=== PATIENT | female | born 1965 | race Caucasian/White ===

== ENCOUNTER 2019-03-12 16:28 | Inpatient (IN) | payer BC ==
--- NOTE | 2019-03-12 16:44 | EDM.PDOC ---
ED HPI GENERAL MEDICAL PROBLEM - General Chief Complaint: Abdominal Pain Stated Complaint: PT HAS STOMACH PAIN Time Seen by Provider: 03/12/19 16:29 Source of Information: Reports: Patient History Limitations: Reports: No Limitations - History of Present Illness INITIAL COMMENTS - FREE TEXT/NARRATIVE: History of present illness: []Patient started having epigastric pain yesterday associated with vomiting and diarrhea and subjective fevers. Symptoms have been getting worse despite several [id number] medications such as Tums and Gas-X. She had a similar episode 3 weeks ago that was self-limited and she states the diarrhea was much worse.Patient has had 2 C-sections, partial hysterectomy, appendectomy and oophorectomy in the past. Review of systems: As per history of present illness and below otherwise all systems reviewed and negative. Past medical history: As per history of present illness and as reviewed below otherwise noncontributory. Surgical history: As per history of present illness and as reviewed below otherwise noncontributory. Social history: No reported history of drug or alcohol abuse. Family history: As per history of present illness and as reviewed below otherwise noncontributory. Physical exam: General: Well developed, well nourished in NAD HEENT: Atraumatic, normocephalic, pupils reactive, negative for conjunctival pallor or scleral icterus, mucous membranes moist, throat clear, neck supple, nontender, trachea midline. Lungs: Clear to auscultation, breath sounds equal bilaterally, chest nontender. Heart: S1S2, regular, negative for clicks, rubs, or JVD. Abdomen: NABS, Soft, nondistended,diffuse tenderness she has voluntary guarding in the right lower quadrant,no rebound. Negative for masses or hepatosplenomegaly. Negative for costovertebral tenderness. Pelvis: Stable nontender. Genitourinary: Deferred. Rectal: Deferred. Extremities: Atraumatic, negative for cords or calf pain. Neurovascular unremarkable. Neuro: Awake, alert, oriented. Cranial nerves II through XII unremarkable. Cerebellum unremarkable. Motor and sensory unremarkable throughout. Exam nonfocal. Skin:warm and dry Diagnostics: CBC, chemistry, lipase, UA-40+ ketones, CT abdomen and pelvis-bowel obstruction with a transition point, there is no pneumatosis or perforation. There are areas of thickened wall. Therapeutics: Morphine, Zofran, IV hydration with 2 L normal saline ED Course: pain Improved, Dr. Abbott and Dr. Pelaez consulted after CT results showed bowel obstruction into the hospital for bowel rest and pain control surgery if needed. Impression: Bowel obstruction Prescriptions: Zofran Plan: Take meds as directed, follow up with your primary care physician, return to ER if symptoms worsen or change. Definitive disposition and diagnosis as appropriate pending reevaluation and review of above. Abdomen Pain Score (Numeric/FACES): 8 - Related Data Allergies Allergy/AdvReac Type Severity Reaction Status Date / Time aspirin Allergy Nose Bleeds Verified 03/12/19 19:25 Penicillins Allergy Cannot Verified 03/12/19 16:48 Remember Home Meds: Home Meds Biest/Progesterone Transdermal Cr 1 applic TOP DAILY 08/30/16 [History] Progesterone,Micronized [Progesterone] 100 mg PO DAILY 08/30/16 [History] Levothyroxine mcg PO DAILY 03/12/19 [History] Ondansetron [Zofran ODT] 4 mg PO Q6H PRN #20 tab.dis 03/12/19 [Rx] Past Medical History Gastrointestinal History: Reports: None Genitourinary History: Reports: None [employer] History: Reports: Musculoskeletal History: Reports: Other (See Below) Other Musculoskeletal History: neck, shoulder and back pain, rt groin and ankle pain, myalgia pain - Past Surgical History Female Surgical History: Reports: Section, Hysterectomy, Oophorectomy ED ROS GENERAL - Review of Systems Review Of Systems: See Below ED EXAM, GI/ABD - Physical Exam Exam: See Below Course - Vital Signs Last Recorded V/S: Last Vital Signs Temp 97.1 F 03/12/19 16:45 Pulse 79 03/12/19 16:45 Resp 16 03/12/19 16:45 BP 130/83 03/12/19 16:45 Pulse Ox 96 03/12/19 16:45 - Orders/Labs/Meds Orders: Active Orders 24 hr Category Date Time Status Patient Status [ADT] Stat ADT 03/12/19 19:36 Active LACTATE WITH REFLEX [BG] Stat Lab 03/12/19 19:33 Ordered Sodium Chloride 0.9% [Saline Flush] Med 03/12/19 16:48 Active 10 ml FLUSH ASDIRECTED PRN Sodium Chloride 0.9% [Saline Flush] Med 03/12/19 16:48 Active 2.5 ml FLUSH ASDIRECTED PRN Saline Lock Insert [OM.PC] Stat Oth 03/12/19 16:48 Ordered Medication Orders Sodium Chloride (Saline Flush) 10 ml FLUSH ASDIRECTED PRN PRN Reason: Keep Vein Open Sodium Chloride (Saline Flush) 2.5 ml FLUSH ASDIRECTED PRN PRN Reason: Keep Vein Open Labs: Laboratory Tests 03/12/19 03/12/19 03/12/19 Range/Units 17:00 17:00 18:05 WBC 8.22 (4.0-11.0) K/uL RBC 4.79 (4.30-5.90) M/uL Hgb 14.8 (12.0-16.0) g/dL Hct 43.6 (36.0-46.0) % MCV 91.0 (80.0-98.0) fL MCH 30.9 (27.0-32.0) pg MCHC 33.9 (31.0-37.0) g/dL RDW Std Deviation 43.0 (28.0-62.0) fl RDW Coeff of Raghav 13 (11.0-15.0) % Plt Count 230 (150-400) K/uL MPV 10.60 (7.40-12.00) fL Neut % (Auto) 71.4 (48.0-80.0) % Lymph % (Auto) 20.7 (16.0-40.0) % [place] % (Auto) 7.2 (0.0-15.0) % Eos % (Auto) 0.5 (0.0-7.0) % Baso % (Auto) 0.2 (0.0-1.5) % Neut # (Auto) 5.9 H (1.4-5.7) K/uL Lymph # (Auto) 1.7 (0.6-2.4) K/uL [place] # (Auto) 0.6 (0.0-0.8) K/uL Eos # (Auto) 0.0 (0.0-0.7) K/uL Baso # (Auto) 0.0 (0.0-0.1) K/uL Nucleated RBC % 0.0 /100WBC Nucleated RBCs # 0 K/uL Sodium 142 (136-145) mmol/L Potassium 4.1 (3.5-5.1) mmol/L Chloride 104 (98-107) mmol/L Carbon Dioxide 27.3 (21.0-32.0) mmol/L BUN 12 (7.0-18.0) mg/dL Creatinine 1.0 (0.6-1.0) mg/dL Est Cr Clr Drug Dosing 58.54 mL/min Estimated GFR (MDRD) 58.0 ml/min Glucose 113 H (74-106) mg/dL Calcium 9.3 (8.5-10.1) mg/dL Total Bilirubin 0.6 (0.2-1.0) mg/dL AST 22 (15-37) IU/L ALT 19 (14-63) IU/L Alkaline Phosphatase 58 (46-116) U/L Total Protein 7.7 (6.4-8.2) g/dL Albumin 4.4 (3.4-5.0) g/dL Globulin 3.3 (2.6-4.0) g/dL Albumin/Globulin Ratio 1.3 (0.9-1.6) Lipase 72 L (73-393) U/L Urine Color YELLOW Urine Appearance SLT CLOUDY Urine pH 5.5 (5.0-8.0) Ur Specific [place] 1.025 (1.001-1.035) Urine Protein NEGATIVE (NEGATIVE) mg/dL Urine Glucose (UA) NEGATIVE (NEGATIVE) mg/dL Urine Ketones 40 H (NEGATIVE) mg/dL Urine Occult Blood MODERATE H (NEGATIVE) Urine Nitrite NEGATIVE (NEGATIVE) Urine Bilirubin NEGATIVE (NEGATIVE) Urine Urobilinogen 0.2 (<2.0) EU/dL Ur Leukocyte Esterase NEGATIVE (NEGATIVE) Urine RBC 0-1 (0-2/HPF) Urine WBC 0-1 (0-5/HPF) Ur Epithelial Cells RARE (NONE-FEW) Urine Bacteria RARE (NEGATIVE) Urine Mucus LIGHT (NONE-MOD) Meds: Medications Generic Name Dose Route Start Last Admin Trade Name Freq PRN Reason Stop Dose Admin Sodium Chloride 10 ml 03/12/19 16:48 Saline Flush FLUSH ASDIRECTED PRN Keep Vein Open Sodium Chloride 2.5 ml 03/12/19 16:48 Saline Flush FLUSH ASDIRECTED PRN Keep Vein Open Discontinued Medications Generic Name Dose Route Start Last Admin Trade Name Freq PRN Reason Stop Dose Admin Famotidine 20 mg 03/12/19 17:33 03/12/19 17:39 Pepcid IVPUSH 03/12/19 17:34 20 mg ONETIME ONE Administration Sodium Chloride 1,000 mls @ 999 mls/hr 03/12/19 16:48 03/12/19 17:03 Normal Saline IV 03/12/19 17:48 999 mls/hr .Bolus ONE Administration Sodium Chloride 1,000 mls @ 999 mls/hr 03/12/19 18:09 03/12/19 18:34 Normal Saline IV 03/12/19 19:09 999 mls/hr .Bolus ONE Administration Iopamidol 83 ml 03/12/19 18:52 03/12/19 18:53 Isovue Multipack-370 (76%) IVPUSH 03/12/19 18:53 83 ml ONETIME ONE Administration Morphine Sulfate 2 mg 03/12/19 16:48 03/12/19 17:03 Morphine IVPUSH 03/12/19 16:49 2 mg ONETIME ONE Administration Morphine Sulfate 2 mg 03/12/19 18:07 03/12/19 18:09 Morphine IVPUSH 03/12/19 18:08 2 mg ONETIME ONE Administration Morphine Sulfate Confirm 03/12/19 18:06 03/12/19 18:19 Morphine Administered 03/12/19 18:07 Not Given Dose 2 mg .ROUTE .STK-MED ONE Ondansetron HCl 4 mg 03/12/19 16:48 03/12/19 17:03 Zofran IVPUSH 03/12/19 16:49 4 mg ONETIME ONE Administration Departure - Departure Time of Disposition: 19:40 Disposition: Admitted As Inpatient 66 Condition: Good Clinical Impression: Bowel obstruction Qualifiers: Intestinal obstruction type: unspecified Intestinal obstruction extent: complete Qualified Code(s): K56.601 - Complete intestinal obstruction, unspecified as to cause - Discharge Information *PRESCRIPTION DRUG MONITORING PROGRAM REVIEWED*: No *COPY OF PRESCRIPTION DRUG MONITORING REPORT IN PATIENT ERIC: No Prescriptions: Ondansetron [Zofran ODT] 4 mg PO Q6H PRN #20 tab.dis PRN Reason: Nausea Referrals: PCP,None [Primary Care Provider] - Forms: ED Department Discharge - My Orders Last 24 Hours: My Active Orders 03/12/19 16:48 Sodium Chloride 0.9% [Saline Flush] 10 ml FLUSH ASDIRECTED PRN Sodium Chloride 0.9% [Saline Flush] 2.5 ml FLUSH ASDIRECTED PRN Saline Lock Insert [OM.PC] Stat 03/12/19 19:33 LACTATE WITH REFLEX [BG] Stat 03/12/19 19:36 Patient Status [ADT] Stat - Assessment/Plan Last 24 Hours: My Active Orders 03/12/19 16:48 Sodium Chloride 0.9% [Saline Flush] 10 ml FLUSH ASDIRECTED PRN Sodium Chloride 0.9% [Saline Flush] 2.5 ml FLUSH ASDIRECTED PRN Saline Lock Insert [OM.PC] Stat 03/12/19 19:33 LACTATE WITH REFLEX [BG] Stat 03/12/19 19:36 Patient Status [ADT] Stat
[2019-03-12] MEDS ORDERED: Sodium Chloride 0.9% 1,000 ML IV ONE ×2 (16:48→18:09)
[2019-03-12] MEDS ORDERED: Ondansetron 4 MG/2 ML SDV IVPUSH ONE (16:48)
[2019-03-12] MEDS ORDERED: Sodium Chloride 0.9% 10 ML Syringe FLUSH PRN (16:48)
[2019-03-12] MEDS ORDERED: Morphine 2 MG/ML Syringe IVPUSH ONE ×2 (16:48→18:07)
[2019-03-12] MEDS ORDERED: Sodium Chloride 0.9% 2.5 ML Syringe FLUSH PRN (16:48)
[2019-03-12] MEDS ORDERED: Famotidine 20 MG/2 ML SDV IVPUSH ONE (17:33)
[2019-03-12] MEDS ORDERED: Morphine 2 MG/ML Syringe ONE (18:06)
[2019-03-12] MEDS ORDERED: Iopamidol 755 MG/ML 200 ML Multipack Bottle IVPUSH ONE (18:52)
--- NOTE | 2019-03-12 19:35 | CT ---
INDICATION: Upper abdominal pain. TECHNIQUE: CT abdomen and pelvis acquired with IV contrast. COMPARISON: None FINDINGS: Lower chest: Unremarkable. Liver: Unremarkable. Spleen: Unremarkable. Pancreas: Unremarkable. Gallbladder and bile ducts: Unremarkable. Kidneys: Tiny low-density lesion in the lower pole of the left kidney is too small to characterize. No other renal abnormality. Adrenal glands: Unremarkable. GI tract: Mild colonic diverticulosis. The appendix is reportedly surgically absent. There are several borderline to mildly dilated fluid-filled loops of small bowel. There is a transition point in the right mid abdomen (image 75). A few loops of small bowel in the pelvis demonstrate wall thickening. No pneumatosis. No portal venous gas. Vascular structures: No sign of aneurysm. Lymph nodes: Unremarkable. Miscellaneous: There is mild ascites in the abdomen and pelvis. No free air. Pelvic Organs: Urinary bladder is normal. Hysterectomy. Bones: No acute abnormality. Nonspecific 1.7 lucent lesion in the left iliac bone (coronal image 58). No other bone lesion. IMPRESSION: 1. Findings are consistent with small bowel obstruction. There appears to be a transition point in the right mid abdomen. A couple of small bowel loops in the pelvis demonstrate wall thickening without evidence of pneumatosis or portal venous gas. Proximal jejunal loops and distal ileal loops are nondistended. Findings are not diagnostic of a closed loop obstruction although this is a consideration. Recommend surgical consultation. 2. Small volume ascites in the abdomen and pelvis is reactive to #1. Findings discussed with Dr. Sam at 7:30 p.m. on 03/12/2019. Dictated by William Her MD @ 03/12/2019 7:34:03 PM Please note that all CT scans at this facility use dose modulation, iterative reconstruction, and/or weight-based dosing when appropriate to reduce radiation dose to as low as reasonably achievable. Dictated by: William Her MD @ 03/12/2019 19:34:13 (Electronically Signed)
--- NOTE | 2019-03-12 20:21 | PCM.CONS ---
H&P History of Present Illness - General Date of Service: 03/12/19 Admit Problem/Dx: Admission Diagnosis/Problem Admission Diagnosis/Problem Small bowel obstruction Source of Information: Patient History Limitations: Reports: No Limitations - History of Present Illness Initial Comments - Free Text/Narative: Patient is a 53 year old male who presents with nausea and abdominal pain. She had similar symptoms earlier this month with worse diarrhea but they resolved on their own. Over the last 2 days the symptoms returned and did not resolve. She tried OTC medications with no relief. She tried to get into clinic but couldnt be seen. She had a loose BM and then vomited and decided to come to the ER. She has had four abdominal surgeries. She has never had a colonoscopy. No family history of colon cancer, inflammatory bowel syndromes. Abdomen Pain Score (Numeric/FACES): 8 - Related Data Allergies/Adverse Reactions: Allergies Allergy/AdvReac Type Severity Reaction Status Date / Time aspirin Allergy Nose Bleeds Verified 03/12/19 19:25 Penicillins Allergy Cannot Verified 03/12/19 16:48 Remember Home Medications: Home Meds Biest/Progesterone Transdermal Cr 1 applic TOP DAILY 08/30/16 [History] Progesterone,Micronized [Progesterone] 100 mg PO DAILY 08/30/16 [History] Levothyroxine mcg PO DAILY 03/12/19 [History] Ondansetron [Zofran ODT] 4 mg PO Q6H PRN #20 tab.dis 03/12/19 [Rx] Past Medical History Gastrointestinal History: Reports: None Genitourinary History: Reports: None [employer]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: Musculoskeletal History: Reports: Other (See Below) Other Musculoskeletal History: neck, shoulder and back pain, rt groin and ankle pain, myalgia pain - Infectious Disease History Infectious Disease History: Reports: Chicken Pox, Mumps - Past Surgical History GI Surgical History: Reports: Appendectomy Female Surgical History: Reports: Section, Hysterectomy, Oophorectomy Social & Family History - Family History Family Medical History: Noncontributory - Tobacco Use Smoking Status *Q: Never Smoker - Caffeine Use Caffeine Use: Reports: Coffee - Recreational Drug Use Recreational Drug Use: No H&P Review of Systems - Review of Systems: Review Of Systems: ROS reveals no pertinent complaints other than HPI. Exam - Exam Exam: See Below - Vital Signs Vital Signs: Last Vital Signs Temp 36.2 C 03/12/19 16:45 Pulse 79 03/12/19 16:45 Resp 16 03/12/19 16:45 BP 130/83 03/12/19 16:45 Pulse Ox 96 03/12/19 16:45 Weight: 69.6 kg - Exam General: Alert, Oriented, Cooperative HEENT: Conjunctiva Clear, Mucosa Moist & [place], Posterior Pharynx Clear Neck: Supple Lungs: Clear to Auscultation, Normal Respiratory Effort Cardiovascular: Regular Rate, Regular Rhythm GI/Abdominal Exam: Soft, No Distention, Tender (Mild tenderness in RLQ. ). No: Guarding, Rigid, Rebound Back Exam: Normal Inspection, Full Range of Motion Extremities: Normal Inspection, Normal Range of Motion, Non-Tender - Patient Data Lab Results Last 24 hrs: Laboratory Results - last 24 hr 03/12/19 03/12/19 03/12/19 Range/Units 17:00 17:00 18:05 WBC 8.22 (4.0-11.0) K/uL RBC 4.79 (4.30-5.90) M/uL Hgb 14.8 (12.0-16.0) g/dL Hct 43.6 (36.0-46.0) % MCV 91.0 (80.0-98.0) fL MCH 30.9 (27.0-32.0) pg MCHC 33.9 (31.0-37.0) g/dL RDW Std Deviation 43.0 (28.0-62.0) fl RDW Coeff of Raghav 13 (11.0-15.0) % Plt Count 230 (150-400) K/uL MPV 10.60 (7.40-12.00) fL Neut % (Auto) 71.4 (48.0-80.0) % Lymph % (Auto) 20.7 (16.0-40.0) % [place] % (Auto) 7.2 (0.0-15.0) % Eos % (Auto) 0.5 (0.0-7.0) % Baso % (Auto) 0.2 (0.0-1.5) % Neut # (Auto) 5.9 H (1.4-5.7) K/uL Lymph # (Auto) 1.7 (0.6-2.4) K/uL [place] # (Auto) 0.6 (0.0-0.8) K/uL Eos # (Auto) 0.0 (0.0-0.7) K/uL Baso # (Auto) 0.0 (0.0-0.1) K/uL Nucleated RBC % 0.0 /100WBC Nucleated RBCs # 0 K/uL Lactate (0.20-2.00) mmol/L Sodium 142 (136-145) mmol/L Potassium 4.1 (3.5-5.1) mmol/L Chloride 104 (98-107) mmol/L Carbon Dioxide 27.3 (21.0-32.0) mmol/L BUN 12 (7.0-18.0) mg/dL Creatinine 1.0 (0.6-1.0) mg/dL Est Cr Clr Drug Dosing 58.54 mL/min Estimated GFR (MDRD) 58.0 ml/min Glucose 113 H (74-106) mg/dL Calcium 9.3 (8.5-10.1) mg/dL Total Bilirubin 0.6 (0.2-1.0) mg/dL AST 22 (15-37) IU/L ALT 19 (14-63) IU/L Alkaline Phosphatase 58 (46-116) U/L Total Protein 7.7 (6.4-8.2) g/dL Albumin 4.4 (3.4-5.0) g/dL Globulin 3.3 (2.6-4.0) g/dL Albumin/Globulin Ratio 1.3 (0.9-1.6) Lipase 72 L (73-393) U/L Urine Color YELLOW Urine Appearance SLT CLOUDY Urine pH 5.5 (5.0-8.0) Ur Specific [place] 1.025 (1.001-1.035) Urine Protein NEGATIVE (NEGATIVE) mg/dL Urine Glucose (UA) NEGATIVE (NEGATIVE) mg/dL Urine Ketones 40 H (NEGATIVE) mg/dL Urine Occult Blood MODERATE H (NEGATIVE) Urine Nitrite NEGATIVE (NEGATIVE) Urine Bilirubin NEGATIVE (NEGATIVE) Urine Urobilinogen 0.2 (<2.0) EU/dL Ur Leukocyte Esterase NEGATIVE (NEGATIVE) Urine RBC 0-1 (0-2/HPF) Urine WBC 0-1 (0-5/HPF) Ur Epithelial Cells RARE (NONE-FEW) Urine Bacteria RARE (NEGATIVE) Urine Mucus LIGHT (NONE-MOD) 03/12/19 Range/Units 19:48 WBC (4.0-11.0) K/uL RBC (4.30-5.90) M/uL Hgb (12.0-16.0) g/dL Hct (36.0-46.0) % MCV (80.0-98.0) fL MCH (27.0-32.0) pg MCHC (31.0-37.0) g/dL RDW Std Deviation (28.0-62.0) fl RDW Coeff of Raghav (11.0-15.0) % Plt Count (150-400) K/uL MPV (7.40-12.00) fL Neut % (Auto) (48.0-80.0) % Lymph % (Auto) (16.0-40.0) % [place] % (Auto) (0.0-15.0) % Eos % (Auto) (0.0-7.0) % Baso % (Auto) (0.0-1.5) % Neut # (Auto) (1.4-5.7) K/uL Lymph # (Auto) (0.6-2.4) K/uL [place] # (Auto) (0.0-0.8) K/uL Eos # (Auto) (0.0-0.7) K/uL Baso # (Auto) (0.0-0.1) K/uL Nucleated RBC % /100WBC Nucleated RBCs # K/uL Lactate 1.1 (0.20-2.00) mmol/L Sodium (136-145) mmol/L Potassium (3.5-5.1) mmol/L Chloride (98-107) mmol/L Carbon Dioxide (21.0-32.0) mmol/L BUN (7.0-18.0) mg/dL Creatinine (0.6-1.0) mg/dL Est Cr Clr Drug Dosing mL/min Estimated GFR (MDRD) ml/min Glucose (74-106) mg/dL Calcium (8.5-10.1) mg/dL Total Bilirubin (0.2-1.0) mg/dL AST (15-37) IU/L ALT (14-63) IU/L Alkaline Phosphatase (46-116) U/L Total Protein (6.4-8.2) g/dL Albumin (3.4-5.0) g/dL Globulin (2.6-4.0) g/dL Albumin/Globulin Ratio (0.9-1.6) Lipase (73-393) U/L Urine Color Urine Appearance Urine pH (5.0-8.0) Ur Specific [place] (1.001-1.035) Urine Protein (NEGATIVE) mg/dL Urine Glucose (UA) (NEGATIVE) mg/dL Urine Ketones (NEGATIVE) mg/dL Urine Occult Blood (NEGATIVE) Urine Nitrite (NEGATIVE) Urine Bilirubin (NEGATIVE) Urine Urobilinogen (<2.0) EU/dL Ur Leukocyte Esterase (NEGATIVE) Urine RBC (0-2/HPF) Urine WBC (0-5/HPF) Ur Epithelial Cells (NONE-FEW) Urine Bacteria (NEGATIVE) Urine Mucus (NONE-MOD) Result Diagrams: 03/12/19 17:00 03/12/19 17:00 Consult PN Assessment/Plan Procedures: Procedures ANTINUCLEAR ANTIBODIES (04/27/16) ASSAY OF CK (CPK) (04/27/16) ASSAY THYROID STIM HORMONE (04/27/16) COMP SCREEN MAMMOGRAM ADD-ON (08/25/15) COMPLETE CBC W/AUTO DIFF WBC (04/27/16) COMPREHEN METABOLIC PANEL (04/27/16) MRI LUMBAR SPINE W/O DYE (03/08/16) RBC SED RATE AUTOMATED (04/27/16) REDUCTION OF LARGE BREAST (09/01/16) RHEUMATOID FACTOR TEST QUAL (04/27/16) ROUTINE VENIPUNCTURE (04/27/16) URINALYSIS AUTO W/SCOPE (04/06/14) URINE BACTERIA CULTURE (04/06/14) X-RAY EXAM HIP UNI 2-3 VIEWS (03/02/16) X-RAY EXAM L-S SPINE 2/3 VWS (03/02/16) X-RAY EXAM OF ANKLE (03/02/16) (1) Bowel obstruction SNOMED Code(s): 97446315 Code(s): K56.609 - UNSP INTESTNL OBST, UNSP TO PARTIAL VERSUS COMPLETE OBST Current Visit: Yes Qualifiers: Intestinal obstruction type: unspecified Intestinal obstruction extent: complete Qualified Code(s): K56.601 - Complete intestinal obstruction, unspecified as to cause Problem List Initiated/Reviewed/Updated: Yes Plan: Her vitals were stable on arrival. UA showed increased ketones and some blood. Her WBC was normal. CT abdomen/pelvis showed dilated loops of proximal small bowel and there are a few loops of small bowel that have some thickening. There is no pneumatosis and no portal venous gas. The transition point is in the area of the thickened bowel. She feels much better after fluids. Admit to medicine. Would continue IVF and NPO other than meds. She doesnt need to have an NG placed at this time but if she starts vomiting multiple times she will need one placed. Recommend repeat labs in am and stool cultures if she has another BM. Abdomen doesnt feel acute. Will continue to follow. Call with concerns or questions.
[2019-03-12] MEDS ORDERED: Ondansetron 4 MG/2 ML SDV IVPUSH PRN (20:56)
[2019-03-12] MEDS ORDERED: Morphine 2 MG/ML Syringe IVPUSH PRN (20:57)
[2019-03-12] MEDS: Sodium Chloride 0.9% 1,000 ML IV SCH (21:50)
--- NOTE | 2019-03-12 23:49 | PCM.HP ---
H&P History of Present Illness - General Date of Service: 03/12/19 Admit Problem/Dx: Admission Diagnosis/Problem Admission Diagnosis/Problem Small bowel obstruction - History of Present Illness Initial Comments - Free Text/Narative: 53 yo male who presented with two day history of abdominal pain and diarrhea. Her last bowel movement was 3:00 today. She then developed nausea and vomiting. CT scan of the abdomen was suggestive of small bowel obstruction. She has a history of , hysterectomy, oophorectomy, and appendectomy. Abdomen Pain Score (Numeric/FACES): 8 - Related Data Allergies/Adverse Reactions: Allergies Allergy/AdvReac Type Severity Reaction Status Date / Time aspirin Allergy Nose Bleeds Verified 03/13/19 02:00 Penicillins Allergy Cannot Verified 03/13/19 02:00 Remember Home Medications: Home Meds Biest/Progesterone Transdermal Cr 1 applic TOP DAILY 08/30/16 [History] Progesterone,Micronized [Progesterone] 100 mg PO BEDTIME 08/30/16 [History] Levothyroxine 50 mcg PO DAILY 03/12/19 [History] Ondansetron [Zofran ODT] 4 mg PO Q6H PRN #20 tab.dis 03/12/19 [Rx] Tolterodine [Detrol] 4 mg PO DAILY 03/12/19 [History] Past Medical History Gastrointestinal History: Reports: None Genitourinary History: Reports: None [employer] History: Reports: Musculoskeletal History: Reports: Other (See Below) Other Musculoskeletal History: neck, shoulder and back pain, rt groin and ankle pain, myalgia pain - Infectious Disease History Infectious Disease History: Reports: Chicken Pox, Mumps - Past Surgical History GI Surgical History: Reports: Appendectomy Female Surgical History: Reports: Section, Hysterectomy, Oophorectomy Social & Family History - Family History Family Medical History: Noncontributory - Tobacco Use Smoking Status *Q: Never Smoker - Caffeine Use Caffeine Use: Reports: Coffee - Recreational Drug Use Recreational Drug Use: No H&P Review of Systems - Review of Systems: Review Of Systems: ROS reveals no pertinent complaints other than HPI. Exam - Exam Exam: See Below - Vital Signs Vital Signs: Last Vital Signs Temp 36.2 C 03/12/19 16:45 Pulse 70 03/12/19 20:20 Resp 16 03/12/19 20:20 BP 127/66 03/12/19 20:20 Pulse Ox 98 03/12/19 20:20 Weight: 69.6 kg - Exam General: Alert, Oriented HEENT: Mucosa Moist & [place] Lungs: Clear to Auscultation, Normal Respiratory Effort Cardiovascular: Regular Rate, Regular Rhythm GI/Abdominal Exam: Soft, Tender (in all four quadrants). No: Distended, Guarding, Rigid, Rebound Extremities: Non-Tender, No Pedal Edema Skin: Warm, Dry, Intact - Patient Data Lab Results Last 24 hrs: Laboratory Results - last 24 hr 03/12/19 03/12/19 03/12/19 Range/Units 17:00 17:00 18:05 WBC 8.22 (4.0-11.0) K/uL RBC 4.79 (4.30-5.90) M/uL Hgb 14.8 (12.0-16.0) g/dL Hct 43.6 (36.0-46.0) % MCV 91.0 (80.0-98.0) fL MCH 30.9 (27.0-32.0) pg MCHC 33.9 (31.0-37.0) g/dL RDW Std Deviation 43.0 (28.0-62.0) fl RDW Coeff of Raghav 13 (11.0-15.0) % Plt Count 230 (150-400) K/uL MPV 10.60 (7.40-12.00) fL Neut % (Auto) 71.4 (48.0-80.0) % Lymph % (Auto) 20.7 (16.0-40.0) % [place] % (Auto) 7.2 (0.0-15.0) % Eos % (Auto) 0.5 (0.0-7.0) % Baso % (Auto) 0.2 (0.0-1.5) % Neut # (Auto) 5.9 H (1.4-5.7) K/uL Lymph # (Auto) 1.7 (0.6-2.4) K/uL [place] # (Auto) 0.6 (0.0-0.8) K/uL Eos # (Auto) 0.0 (0.0-0.7) K/uL Baso # (Auto) 0.0 (0.0-0.1) K/uL Nucleated RBC % 0.0 /100WBC Nucleated RBCs # 0 K/uL Lactate (0.20-2.00) mmol/L Sodium 142 (136-145) mmol/L Potassium 4.1 (3.5-5.1) mmol/L Chloride 104 (98-107) mmol/L Carbon Dioxide 27.3 (21.0-32.0) mmol/L BUN 12 (7.0-18.0) mg/dL Creatinine 1.0 (0.6-1.0) mg/dL Est Cr Clr Drug Dosing 58.54 mL/min Estimated GFR (MDRD) 58.0 ml/min Glucose 113 H (74-106) mg/dL Calcium 9.3 (8.5-10.1) mg/dL Total Bilirubin 0.6 (0.2-1.0) mg/dL AST 22 (15-37) IU/L ALT 19 (14-63) IU/L Alkaline Phosphatase 58 (46-116) U/L Total Protein 7.7 (6.4-8.2) g/dL Albumin 4.4 (3.4-5.0) g/dL Globulin 3.3 (2.6-4.0) g/dL Albumin/Globulin Ratio 1.3 (0.9-1.6) Lipase 72 L (73-393) U/L Urine Color YELLOW Urine Appearance SLT CLOUDY Urine pH 5.5 (5.0-8.0) Ur Specific [place] 1.025 (1.001-1.035) Urine Protein NEGATIVE (NEGATIVE) mg/dL Urine Glucose (UA) NEGATIVE (NEGATIVE) mg/dL Urine Ketones 40 H (NEGATIVE) mg/dL Urine Occult Blood MODERATE H (NEGATIVE) Urine Nitrite NEGATIVE (NEGATIVE) Urine Bilirubin NEGATIVE (NEGATIVE) Urine Urobilinogen 0.2 (<2.0) EU/dL Ur Leukocyte Esterase NEGATIVE (NEGATIVE) Urine RBC 0-1 (0-2/HPF) Urine WBC 0-1 (0-5/HPF) Ur Epithelial Cells RARE (NONE-FEW) Urine Bacteria RARE (NEGATIVE) Urine Mucus LIGHT (NONE-MOD) 03/12/19 Range/Units 19:48 WBC (4.0-11.0) K/uL RBC (4.30-5.90) M/uL Hgb (12.0-16.0) g/dL Hct (36.0-46.0) % MCV (80.0-98.0) fL MCH (27.0-32.0) pg MCHC (31.0-37.0) g/dL RDW Std Deviation (28.0-62.0) fl RDW Coeff of Raghav (11.0-15.0) % Plt Count (150-400) K/uL MPV (7.40-12.00) fL Neut % (Auto) (48.0-80.0) % Lymph % (Auto) (16.0-40.0) % [place] % (Auto) (0.0-15.0) % Eos % (Auto) (0.0-7.0) % Baso % (Auto) (0.0-1.5) % Neut # (Auto) (1.4-5.7) K/uL Lymph # (Auto) (0.6-2.4) K/uL [place] # (Auto) (0.0-0.8) K/uL Eos # (Auto) (0.0-0.7) K/uL Baso # (Auto) (0.0-0.1) K/uL Nucleated RBC % /100WBC Nucleated RBCs # K/uL Lactate 1.1 (0.20-2.00) mmol/L Sodium (136-145) mmol/L Potassium (3.5-5.1) mmol/L Chloride (98-107) mmol/L Carbon Dioxide (21.0-32.0) mmol/L BUN (7.0-18.0) mg/dL Creatinine (0.6-1.0) mg/dL Est Cr Clr Drug Dosing mL/min Estimated GFR (MDRD) ml/min Glucose (74-106) mg/dL Calcium (8.5-10.1) mg/dL Total Bilirubin (0.2-1.0) mg/dL AST (15-37) IU/L ALT (14-63) IU/L Alkaline Phosphatase (46-116) U/L Total Protein (6.4-8.2) g/dL Albumin (3.4-5.0) g/dL Globulin (2.6-4.0) g/dL Albumin/Globulin Ratio (0.9-1.6) Lipase (73-393) U/L Urine Color Urine Appearance Urine pH (5.0-8.0) Ur Specific [place] (1.001-1.035) Urine Protein (NEGATIVE) mg/dL Urine Glucose (UA) (NEGATIVE) mg/dL Urine Ketones (NEGATIVE) mg/dL Urine Occult Blood (NEGATIVE) Urine Nitrite (NEGATIVE) Urine Bilirubin (NEGATIVE) Urine Urobilinogen (<2.0) EU/dL Ur Leukocyte Esterase (NEGATIVE) Urine RBC (0-2/HPF) Urine WBC (0-5/HPF) Ur Epithelial Cells (NONE-FEW) Urine Bacteria (NEGATIVE) Urine Mucus (NONE-MOD) Result Diagrams: 03/13/19 04:55 03/13/19 04:55 Problem List Initiated/Reviewed/Updated: Yes Orders Last 24hrs: Active Orders 24 hr Category Date Time Status Patient Status [ADT] Stat ADT 03/12/19 19:36 Active NPO [Nothing Per Oral Diet] [DIET] Diet 03/13/19 Breakfast Active BMP [BASIC METABOLIC PANEL,BMP] [CHEM] Routine Lab 03/13/19 05:11 Ordered CBC WITH AUTO DIFF [HEME] Routine Lab 03/13/19 05:11 Ordered Morphine Med 03/12/19 20:57 Active 2 mg IVPUSH Q2H PRN Ondansetron [Zofran] Med 03/12/19 20:56 Active 4 mg IVPUSH Q3H PRN Sodium Chloride 0.9% [Normal Saline] 1,000 ml Med 03/12/19 21:00 Active IV ASDIRECTED Sodium Chloride 0.9% [Saline Flush] Med 03/12/19 16:48 Active 10 ml FLUSH ASDIRECTED PRN Sodium Chloride 0.9% [Saline Flush] Med 03/12/19 16:48 Active 2.5 ml FLUSH ASDIRECTED PRN Saline Lock Insert [OM.PC] Stat Oth 03/12/19 16:48 Ordered Medication Orders Sodium Chloride (Normal Saline) 1,000 mls @ 125 mls/hr IV ASDIRECTED [facility] Last Admin: 03/12/19 21:50 Dose: 125 mls/hr Morphine Sulfate (Morphine) 2 mg IVPUSH Q2H PRN PRN Reason: Pain Ondansetron HCl (Zofran) 4 mg IVPUSH Q3H PRN PRN Reason: Nausea Last Admin: 03/12/19 21:48 Dose: 4 mg Sodium Chloride (Saline Flush) 10 ml FLUSH ASDIRECTED PRN PRN Reason: Keep Vein Open Sodium Chloride (Saline Flush) 2.5 ml FLUSH ASDIRECTED PRN PRN Reason: Keep Vein Open Assessment/Plan Comment:: 53 yo female admitted for small bowel obstruction. Dr. Dennis has been consulted. We will treat with bowel rest, IV fluids and pain medications as needed.
[2019-03-13 05:26] LABS: CHLORIDE,CL 111 mmol/L (98-107); SODIUM,NA 144 mmol/L (136-145)
[2019-03-13] MEDS: Sodium Chloride 0.9% 1,000 ML IV SCH ×3 (06:01→21:21)
--- NOTE | 2019-03-13 07:42 | PCM.CONSN ---
- General Info Date of Service: 03/13/19 Subjective Update: Patient is feeling much better this morning. She still has some lower abdominal tenderness but it is far less than before. She has not passed gas or had a BM. She did not vomit and is not nauseated. Vitals stable overnight. - Review of Systems General: Reports: No Symptoms Gastrointestinal: Reports: No Symptoms Genitourinary: Reports: No Symptoms - Patient Data Vitals - Most Recent: Last Vital Signs Temp 36.2 C 03/13/19 04:02 Pulse 66 03/13/19 04:02 Resp 17 03/13/19 04:02 BP 108/54 L 03/13/19 04:02 Pulse Ox 97 03/13/19 04:02 Weight - Most Recent: 69.6 kg I&O - Last 24 Hours: Intake & Output 03/12/19 03/13/19 03/13/19 22:59 06:59 14:59 Intake Total 0 Output Total 410 Balance -410 Lab Results Last 24 Hours: Laboratory Results - last 24 hr 03/12/19 03/12/19 03/12/19 Range/Units 17:00 17:00 18:05 WBC 8.22 (4.0-11.0) K/uL RBC 4.79 (4.30-5.90) M/uL Hgb 14.8 (12.0-16.0) g/dL Hct 43.6 (36.0-46.0) % MCV 91.0 (80.0-98.0) fL MCH 30.9 (27.0-32.0) pg MCHC 33.9 (31.0-37.0) g/dL RDW Std Deviation 43.0 (28.0-62.0) fl RDW Coeff of Raghav 13 (11.0-15.0) % Plt Count 230 (150-400) K/uL MPV 10.60 (7.40-12.00) fL Neut % (Auto) 71.4 (48.0-80.0) % Lymph % (Auto) 20.7 (16.0-40.0) % [place] % (Auto) 7.2 (0.0-15.0) % Eos % (Auto) 0.5 (0.0-7.0) % Baso % (Auto) 0.2 (0.0-1.5) % Neut # (Auto) 5.9 H (1.4-5.7) K/uL Lymph # (Auto) 1.7 (0.6-2.4) K/uL [place] # (Auto) 0.6 (0.0-0.8) K/uL Eos # (Auto) 0.0 (0.0-0.7) K/uL Baso # (Auto) 0.0 (0.0-0.1) K/uL Nucleated RBC % 0.0 /100WBC Nucleated RBCs # 0 K/uL Lactate (0.20-2.00) mmol/L Sodium 142 (136-145) mmol/L Potassium 4.1 (3.5-5.1) mmol/L Chloride 104 (98-107) mmol/L Carbon Dioxide 27.3 (21.0-32.0) mmol/L BUN 12 (7.0-18.0) mg/dL Creatinine 1.0 (0.6-1.0) mg/dL Est Cr Clr Drug Dosing 58.54 mL/min Estimated GFR (MDRD) 58.0 ml/min Glucose 113 H (74-106) mg/dL Calcium 9.3 (8.5-10.1) mg/dL Total Bilirubin 0.6 (0.2-1.0) mg/dL AST 22 (15-37) IU/L ALT 19 (14-63) IU/L Alkaline Phosphatase 58 (46-116) U/L Total Protein 7.7 (6.4-8.2) g/dL Albumin 4.4 (3.4-5.0) g/dL Globulin 3.3 (2.6-4.0) g/dL Albumin/Globulin Ratio 1.3 (0.9-1.6) Lipase 72 L (73-393) U/L Urine Color YELLOW Urine Appearance SLT CLOUDY Urine pH 5.5 (5.0-8.0) Ur Specific [place] 1.025 (1.001-1.035) Urine Protein NEGATIVE (NEGATIVE) mg/dL Urine Glucose (UA) NEGATIVE (NEGATIVE) mg/dL Urine Ketones 40 H (NEGATIVE) mg/dL Urine Occult Blood MODERATE H (NEGATIVE) Urine Nitrite NEGATIVE (NEGATIVE) Urine Bilirubin NEGATIVE (NEGATIVE) Urine Urobilinogen 0.2 (<2.0) EU/dL Ur Leukocyte Esterase NEGATIVE (NEGATIVE) Urine RBC 0-1 (0-2/HPF) Urine WBC 0-1 (0-5/HPF) Ur Epithelial Cells RARE (NONE-FEW) Urine Bacteria RARE (NEGATIVE) Urine Mucus LIGHT (NONE-MOD) 03/12/19 03/13/19 03/13/19 Range/Units 19:48 04:55 04:55 WBC 4.87 (4.0-11.0) K/uL RBC 3.67 L (4.30-5.90) M/uL Hgb 11.1 L (12.0-16.0) g/dL Hct 33.8 L (36.0-46.0) % MCV 92.1 (80.0-98.0) fL MCH 30.2 (27.0-32.0) pg MCHC 32.8 (31.0-37.0) g/dL RDW Std Deviation 43.7 (28.0-62.0) fl RDW Coeff of Raghav 13 (11.0-15.0) % Plt Count 178 (150-400) K/uL MPV 10.20 (7.40-12.00) fL Neut % (Auto) 55.9 (48.0-80.0) % Lymph % (Auto) 32.6 (16.0-40.0) % [place] % (Auto) 10.1 (0.0-15.0) % Eos % (Auto) 1.0 (0.0-7.0) % Baso % (Auto) 0.4 (0.0-1.5) % Neut # (Auto) 2.7 (1.4-5.7) K/uL Lymph # (Auto) 1.6 (0.6-2.4) K/uL [place] # (Auto) 0.5 (0.0-0.8) K/uL Eos # (Auto) 0.1 (0.0-0.7) K/uL Baso # (Auto) 0.0 (0.0-0.1) K/uL Nucleated RBC % 0.0 /100WBC Nucleated RBCs # 0 K/uL Lactate 1.1 (0.20-2.00) mmol/L Sodium 144 (136-145) mmol/L Potassium 4.0 (3.5-5.1) mmol/L Chloride 111 H (98-107) mmol/L Carbon Dioxide 25.5 (21.0-32.0) mmol/L BUN 9 (7.0-18.0) mg/dL Creatinine 0.7 (0.6-1.0) mg/dL Est Cr Clr Drug Dosing 83.63 mL/min Estimated GFR (MDRD) > 60.0 ml/min Glucose 94 (74-106) mg/dL Calcium 7.8 L (8.5-10.1) mg/dL Total Bilirubin (0.2-1.0) mg/dL AST (15-37) IU/L ALT (14-63) IU/L Alkaline Phosphatase (46-116) U/L Total Protein (6.4-8.2) g/dL Albumin (3.4-5.0) g/dL Globulin (2.6-4.0) g/dL Albumin/Globulin Ratio (0.9-1.6) Lipase (73-393) U/L Urine Color Urine Appearance Urine pH (5.0-8.0) Ur Specific [place] (1.001-1.035) Urine Protein (NEGATIVE) mg/dL Urine Glucose (UA) (NEGATIVE) mg/dL Urine Ketones (NEGATIVE) mg/dL Urine Occult Blood (NEGATIVE) Urine Nitrite (NEGATIVE) Urine Bilirubin (NEGATIVE) Urine Urobilinogen (<2.0) EU/dL Ur Leukocyte Esterase (NEGATIVE) Urine RBC (0-2/HPF) Urine WBC (0-5/HPF) Ur Epithelial Cells (NONE-FEW) Urine Bacteria (NEGATIVE) Urine Mucus (NONE-MOD) Med Orders - Current: Current Medications Sodium Chloride (Normal Saline) 1,000 mls @ 125 mls/hr IV ASDIRECTED [facility] Last Admin: 03/13/19 06:01 Dose: 125 mls/hr Morphine Sulfate (Morphine) 2 mg IVPUSH Q2H PRN PRN Reason: Pain Ondansetron HCl (Zofran) 4 mg IVPUSH Q3H PRN PRN Reason: Nausea Last Admin: 03/12/19 21:48 Dose: 4 mg Sodium Chloride (Saline Flush) 10 ml FLUSH ASDIRECTED PRN PRN Reason: Keep Vein Open Sodium Chloride (Saline Flush) 2.5 ml FLUSH ASDIRECTED PRN PRN Reason: Keep Vein Open Discontinued Medications Famotidine (Pepcid) 20 mg IVPUSH ONETIME ONE Stop: 03/12/19 17:34 Last Admin: 03/12/19 17:39 Dose: 20 mg Sodium Chloride (Normal Saline) 1,000 mls @ 999 mls/hr IV .Bolus ONE Stop: 03/12/19 17:48 Last Admin: 03/12/19 17:03 Dose: 999 mls/hr Sodium Chloride (Normal Saline) 1,000 mls @ 999 mls/hr IV .Bolus ONE Stop: 03/12/19 19:09 Last Admin: 03/12/19 18:34 Dose: 999 mls/hr Iopamidol (Isovue Multipack-370 (76%)) 83 ml IVPUSH ONETIME ONE Stop: 03/12/19 18:53 Last Admin: 03/12/19 18:53 Dose: 83 ml Morphine Sulfate (Morphine) 2 mg IVPUSH ONETIME ONE Stop: 03/12/19 16:49 Last Admin: 03/12/19 17:03 Dose: 2 mg Morphine Sulfate (Morphine) 2 mg IVPUSH ONETIME ONE Stop: 03/12/19 18:08 Last Admin: 03/12/19 18:09 Dose: 2 mg Morphine Sulfate (Morphine) Confirm Administered Dose 2 mg .ROUTE .STK-MED ONE Stop: 03/12/19 18:07 Last Admin: 03/12/19 18:19 Dose: Not Given Ondansetron HCl (Zofran) 4 mg IVPUSH ONETIME ONE Stop: 03/12/19 16:49 Last Admin: 03/12/19 17:03 Dose: 4 mg - Exam General: Alert, Oriented HEENT: Pupils Equal, Pupils Reactive Lungs: Normal Respiratory Effort Cardiovascular: Regular Rate GI/Abdominal Exam: Soft, Non-Tender, No Distention, No Mass Consult PN Assessment/Plan Procedures: Procedures ANTINUCLEAR ANTIBODIES (04/27/16) ASSAY OF CK (CPK) (04/27/16) ASSAY THYROID STIM HORMONE (04/27/16) COMP SCREEN MAMMOGRAM ADD-ON (08/25/15) COMPLETE CBC W/AUTO DIFF WBC (04/27/16) COMPREHEN METABOLIC PANEL (04/27/16) MRI LUMBAR SPINE W/O DYE (03/08/16) RBC SED RATE AUTOMATED (04/27/16) REDUCTION OF LARGE BREAST (09/01/16) RHEUMATOID FACTOR TEST QUAL (04/27/16) ROUTINE VENIPUNCTURE (04/27/16) URINALYSIS AUTO W/SCOPE (04/06/14) URINE BACTERIA CULTURE (04/06/14) X-RAY EXAM HIP UNI 2-3 VIEWS (03/02/16) X-RAY EXAM L-S SPINE 2/3 VWS (03/02/16) X-RAY EXAM OF ANKLE (03/02/16) (1) Bowel obstruction SNOMED Code(s): 05308827 Code(s): K56.609 - UNSP INTESTNL OBST, UNSP TO PARTIAL VERSUS COMPLETE OBST Current Visit: Yes Qualifiers: Intestinal obstruction type: unspecified Intestinal obstruction extent: complete Qualified Code(s): K56.601 - Complete intestinal obstruction, unspecified as to cause Problem List Initiated/Reviewed/Updated: Yes Plan: Patient feels less tender and bloated this morning. Can start with ice chips and see how she tolerates that this morning. Her labs show a decreased hgb which is likely from dilution. If she tolerates ice chips with no increased bloating or pain could try clears later today. Would stick to that until bowel function (flatus or BM) occurs. Call with questions.
--- NOTE | 2019-03-13 10:19 | PCM.PN ---
- General Info Date of Service: 03/13/19 - Review of Systems Systems Review Comment:: abdominal pain and nausea resolved, has not had bowel movement or flatus - Patient Data Vitals - Most Recent: Last Vital Signs Temp 36.7 C 03/13/19 08:00 Pulse 69 03/13/19 08:00 Resp 18 03/13/19 08:00 BP 126/73 03/13/19 08:00 Pulse Ox 94 L 03/13/19 08:00 Weight - Most Recent: 69.6 kg I&O - Last 24 Hours: Intake & Output 03/12/19 03/13/19 03/13/19 22:59 06:59 14:59 Intake Total 0 Output Total 410 Balance -410 Lab Results Last 24 Hours: Laboratory Results - last 24 hr 03/12/19 03/12/19 03/12/19 Range/Units 17:00 17:00 18:05 WBC 8.22 (4.0-11.0) K/uL RBC 4.79 (4.30-5.90) M/uL Hgb 14.8 (12.0-16.0) g/dL Hct 43.6 (36.0-46.0) % MCV 91.0 (80.0-98.0) fL MCH 30.9 (27.0-32.0) pg MCHC 33.9 (31.0-37.0) g/dL RDW Std Deviation 43.0 (28.0-62.0) fl RDW Coeff of Raghav 13 (11.0-15.0) % Plt Count 230 (150-400) K/uL MPV 10.60 (7.40-12.00) fL Neut % (Auto) 71.4 (48.0-80.0) % Lymph % (Auto) 20.7 (16.0-40.0) % [place] % (Auto) 7.2 (0.0-15.0) % Eos % (Auto) 0.5 (0.0-7.0) % Baso % (Auto) 0.2 (0.0-1.5) % Neut # (Auto) 5.9 H (1.4-5.7) K/uL Lymph # (Auto) 1.7 (0.6-2.4) K/uL [place] # (Auto) 0.6 (0.0-0.8) K/uL Eos # (Auto) 0.0 (0.0-0.7) K/uL Baso # (Auto) 0.0 (0.0-0.1) K/uL Nucleated RBC % 0.0 /100WBC Nucleated RBCs # 0 K/uL Lactate (0.20-2.00) mmol/L Sodium 142 (136-145) mmol/L Potassium 4.1 (3.5-5.1) mmol/L Chloride 104 (98-107) mmol/L Carbon Dioxide 27.3 (21.0-32.0) mmol/L BUN 12 (7.0-18.0) mg/dL Creatinine 1.0 (0.6-1.0) mg/dL Est Cr Clr Drug Dosing 58.54 mL/min Estimated GFR (MDRD) 58.0 ml/min Glucose 113 H (74-106) mg/dL Calcium 9.3 (8.5-10.1) mg/dL Total Bilirubin 0.6 (0.2-1.0) mg/dL AST 22 (15-37) IU/L ALT 19 (14-63) IU/L Alkaline Phosphatase 58 (46-116) U/L Total Protein 7.7 (6.4-8.2) g/dL Albumin 4.4 (3.4-5.0) g/dL Globulin 3.3 (2.6-4.0) g/dL Albumin/Globulin Ratio 1.3 (0.9-1.6) Lipase 72 L (73-393) U/L Urine Color YELLOW Urine Appearance SLT CLOUDY Urine pH 5.5 (5.0-8.0) Ur Specific [place] 1.025 (1.001-1.035) Urine Protein NEGATIVE (NEGATIVE) mg/dL Urine Glucose (UA) NEGATIVE (NEGATIVE) mg/dL Urine Ketones 40 H (NEGATIVE) mg/dL Urine Occult Blood MODERATE H (NEGATIVE) Urine Nitrite NEGATIVE (NEGATIVE) Urine Bilirubin NEGATIVE (NEGATIVE) Urine Urobilinogen 0.2 (<2.0) EU/dL Ur Leukocyte Esterase NEGATIVE (NEGATIVE) Urine RBC 0-1 (0-2/HPF) Urine WBC 0-1 (0-5/HPF) Ur Epithelial Cells RARE (NONE-FEW) Urine Bacteria RARE (NEGATIVE) Urine Mucus LIGHT (NONE-MOD) 03/12/19 03/13/19 03/13/19 Range/Units 19:48 04:55 04:55 WBC 4.87 (4.0-11.0) K/uL RBC 3.67 L (4.30-5.90) M/uL Hgb 11.1 L (12.0-16.0) g/dL Hct 33.8 L (36.0-46.0) % MCV 92.1 (80.0-98.0) fL MCH 30.2 (27.0-32.0) pg MCHC 32.8 (31.0-37.0) g/dL RDW Std Deviation 43.7 (28.0-62.0) fl RDW Coeff of Raghav 13 (11.0-15.0) % Plt Count 178 (150-400) K/uL MPV 10.20 (7.40-12.00) fL Neut % (Auto) 55.9 (48.0-80.0) % Lymph % (Auto) 32.6 (16.0-40.0) % [place] % (Auto) 10.1 (0.0-15.0) % Eos % (Auto) 1.0 (0.0-7.0) % Baso % (Auto) 0.4 (0.0-1.5) % Neut # (Auto) 2.7 (1.4-5.7) K/uL Lymph # (Auto) 1.6 (0.6-2.4) K/uL [place] # (Auto) 0.5 (0.0-0.8) K/uL Eos # (Auto) 0.1 (0.0-0.7) K/uL Baso # (Auto) 0.0 (0.0-0.1) K/uL Nucleated RBC % 0.0 /100WBC Nucleated RBCs # 0 K/uL Lactate 1.1 (0.20-2.00) mmol/L Sodium 144 (136-145) mmol/L Potassium 4.0 (3.5-5.1) mmol/L Chloride 111 H (98-107) mmol/L Carbon Dioxide 25.5 (21.0-32.0) mmol/L BUN 9 (7.0-18.0) mg/dL Creatinine 0.7 (0.6-1.0) mg/dL Est Cr Clr Drug Dosing 83.63 mL/min Estimated GFR (MDRD) > 60.0 ml/min Glucose 94 (74-106) mg/dL Calcium 7.8 L (8.5-10.1) mg/dL Total Bilirubin (0.2-1.0) mg/dL AST (15-37) IU/L ALT (14-63) IU/L Alkaline Phosphatase (46-116) U/L Total Protein (6.4-8.2) g/dL Albumin (3.4-5.0) g/dL Globulin (2.6-4.0) g/dL Albumin/Globulin Ratio (0.9-1.6) Lipase (73-393) U/L Urine Color Urine Appearance Urine pH (5.0-8.0) Ur Specific [place] (1.001-1.035) Urine Protein (NEGATIVE) mg/dL Urine Glucose (UA) (NEGATIVE) mg/dL Urine Ketones (NEGATIVE) mg/dL Urine Occult Blood (NEGATIVE) Urine Nitrite (NEGATIVE) Urine Bilirubin (NEGATIVE) Urine Urobilinogen (<2.0) EU/dL Ur Leukocyte Esterase (NEGATIVE) Urine RBC (0-2/HPF) Urine WBC (0-5/HPF) Ur Epithelial Cells (NONE-FEW) Urine Bacteria (NEGATIVE) Urine Mucus (NONE-MOD) Med Orders - Current: Current Medications Sodium Chloride (Normal Saline) 1,000 mls @ 125 mls/hr IV ASDIRECTED NICANOR Last Admin: 03/13/19 06:01 Dose: 125 mls/hr Morphine Sulfate (Morphine) 2 mg IVPUSH Q2H PRN PRN Reason: Pain Ondansetron HCl (Zofran) 4 mg IVPUSH Q3H PRN PRN Reason: Nausea Last Admin: 03/12/19 21:48 Dose: 4 mg Sodium Chloride (Saline Flush) 10 ml FLUSH ASDIRECTED PRN PRN Reason: Keep Vein Open Sodium Chloride (Saline Flush) 2.5 ml FLUSH ASDIRECTED PRN PRN Reason: Keep Vein Open Discontinued Medications Famotidine (Pepcid) 20 mg IVPUSH ONETIME ONE Stop: 03/12/19 17:34 Last Admin: 03/12/19 17:39 Dose: 20 mg Sodium Chloride (Normal Saline) 1,000 mls @ 999 mls/hr IV .Bolus ONE Stop: 03/12/19 17:48 Last Admin: 03/12/19 17:03 Dose: 999 mls/hr Sodium Chloride (Normal Saline) 1,000 mls @ 999 mls/hr IV .Bolus ONE Stop: 03/12/19 19:09 Last Admin: 03/12/19 18:34 Dose: 999 mls/hr Iopamidol (Isovue Multipack-370 (76%)) 83 ml IVPUSH ONETIME ONE Stop: 03/12/19 18:53 Last Admin: 03/12/19 18:53 Dose: 83 ml Morphine Sulfate (Morphine) 2 mg IVPUSH ONETIME ONE Stop: 03/12/19 16:49 Last Admin: 03/12/19 17:03 Dose: 2 mg Morphine Sulfate (Morphine) 2 mg IVPUSH ONETIME ONE Stop: 03/12/19 18:08 Last Admin: 03/12/19 18:09 Dose: 2 mg Morphine Sulfate (Morphine) Confirm Administered Dose 2 mg .ROUTE .STK-MED ONE Stop: 03/12/19 18:07 Last Admin: 03/12/19 18:19 Dose: Not Given Ondansetron HCl (Zofran) 4 mg IVPUSH ONETIME ONE Stop: 03/12/19 16:49 Last Admin: 03/12/19 17:03 Dose: 4 mg - Exam General: Alert, Oriented Neck: Supple Lungs: Clear to Auscultation, Normal Respiratory Effort Cardiovascular: Regular Rate, Regular Rhythm GI/Abdominal Exam: Soft, Non-Tender, No Distention Extremities: Non-Tender, No Pedal Edema Skin: Warm, Dry, Intact - Problem List Review Problem List Initiated/Reviewed/Updated: Yes - My Orders Last 24 Hours: My Active Orders 03/12/19 20:56 Ondansetron [Zofran] 4 mg IVPUSH Q3H PRN 03/12/19 20:57 Morphine 2 mg IVPUSH Q2H PRN 03/12/19 21:00 Sodium Chloride 0.9% [Normal Saline] 1,000 ml IV ASDIRECTED 03/13/19 00:02 Oxygen Therapy [RC] PRN Up ad Michaela [RC] ASDIRECTED VTE/DVT Education [RC] PER UNIT ROUTINE Vital Signs [RC] Q4H Sequential Compression Device [OM.PC] Per Unit Routine Resuscitation Status Routine 03/13/19 00:03 Antiembolic Devices [RC] PER UNIT ROUTINE 03/13/19 Breakfast NPO [Nothing Per Oral Diet] [DIET] 03/14/19 05:11 BASIC METABOLIC PANEL,BMP [CHEM] AM CBC WITH AUTO DIFF [HEME] AM 03/15/19 05:11 BASIC METABOLIC PANEL,BMP [CHEM] AM CBC WITH AUTO DIFF [HEME] AM - Plan Plan:: 53 yo female admitted for small bowel obstruction. Dr. Dennis has been consulted. We will continue IV fluids. Will allow ice chips and if tolerates that will advance to clears.
[2019-03-14] MEDS: Sodium Chloride 0.9% 1,000 ML IV SCH (05:26)
[2019-03-14 05:42] LABS: CHLORIDE,CL 111 mmol/L (98-107); SODIUM,NA 144 mmol/L (136-145)
--- NOTE | 2019-03-14 07:22 | PCM.CONSN ---
- General Info Date of Service: 03/14/19 Subjective Update: Patient still having some mild lower abdominal pain. Did have one small liquid BM with flatus yesterday. No passing flatus overnight. Tolerated clear liquid diet. She is complaining of a headache this morning. - Review of Systems HEENT: Reports: Headaches Pulmonary: Reports: No Symptoms Cardiovascular: Reports: No Symptoms Gastrointestinal: Reports: No Symptoms, Abdominal Pain (mild RLQ) Musculoskeletal: Reports: No Symptoms - Patient Data Vitals - Most Recent: Last Vital Signs Temp 36.6 C 03/14/19 04:00 Pulse 65 03/14/19 04:00 Resp 14 03/14/19 04:00 BP 114/58 L 03/14/19 04:00 Pulse Ox 95 03/14/19 04:00 Weight - Most Recent: 69.6 kg I&O - Last 24 Hours: Intake & Output 03/13/19 03/14/19 03/14/19 22:59 06:59 14:59 Intake Total 1520 2100 Output Total 350 1350 Balance 1170 750 Lab Results Last 24 Hours: Laboratory Results - last 24 hr 03/14/19 03/14/19 Range/Units 05:08 05:08 WBC 3.55 L (4.0-11.0) K/uL RBC 3.40 L (4.30-5.90) M/uL Hgb 10.4 L (12.0-16.0) g/dL Hct 31.5 L (36.0-46.0) % MCV 92.6 (80.0-98.0) fL MCH 30.6 (27.0-32.0) pg MCHC 33.0 (31.0-37.0) g/dL RDW Std Deviation 44.2 (28.0-62.0) fl RDW Coeff of Raghav 13 (11.0-15.0) % Plt Count 159 (150-400) K/uL MPV 10.10 (7.40-12.00) fL Neut % (Auto) 46.4 L (48.0-80.0) % Lymph % (Auto) 41.1 H (16.0-40.0) % [place] % (Auto) 8.5 (0.0-15.0) % Eos % (Auto) 3.4 (0.0-7.0) % Baso % (Auto) 0.6 (0.0-1.5) % Neut # (Auto) 1.7 (1.4-5.7) K/uL Lymph # (Auto) 1.5 (0.6-2.4) K/uL [place] # (Auto) 0.3 (0.0-0.8) K/uL Eos # (Auto) 0.1 (0.0-0.7) K/uL Baso # (Auto) 0.0 (0.0-0.1) K/uL Nucleated RBC % 0.0 /100WBC Nucleated RBCs # 0 K/uL Sodium 144 (136-145) mmol/L Potassium 3.6 (3.5-5.1) mmol/L Chloride 111 H (98-107) mmol/L Carbon Dioxide 24.8 (21.0-32.0) mmol/L BUN 8 (7.0-18.0) mg/dL Creatinine 0.7 (0.6-1.0) mg/dL Est Cr Clr Drug Dosing 83.63 mL/min Estimated GFR (MDRD) > 60.0 ml/min Glucose 87 (74-106) mg/dL Calcium 7.8 L (8.5-10.1) mg/dL Med Orders - Current: Current Medications Sodium Chloride (Normal Saline) 1,000 mls @ 125 mls/hr IV ASDIRECTED NICANOR Last Admin: 03/14/19 05:26 Dose: 125 mls/hr Morphine Sulfate (Morphine) 2 mg IVPUSH Q2H PRN PRN Reason: Pain Ondansetron HCl (Zofran) 4 mg IVPUSH Q3H PRN PRN Reason: Nausea Last Admin: 03/12/19 21:48 Dose: 4 mg Sodium Chloride (Saline Flush) 10 ml FLUSH ASDIRECTED PRN PRN Reason: Keep Vein Open Sodium Chloride (Saline Flush) 2.5 ml FLUSH ASDIRECTED PRN PRN Reason: Keep Vein Open Discontinued Medications Famotidine (Pepcid) 20 mg IVPUSH ONETIME ONE Stop: 03/12/19 17:34 Last Admin: 03/12/19 17:39 Dose: 20 mg Sodium Chloride (Normal Saline) 1,000 mls @ 999 mls/hr IV .Bolus ONE Stop: 03/12/19 17:48 Last Admin: 03/12/19 17:03 Dose: 999 mls/hr Sodium Chloride (Normal Saline) 1,000 mls @ 999 mls/hr IV .Bolus ONE Stop: 03/12/19 19:09 Last Admin: 03/12/19 18:34 Dose: 999 mls/hr Iopamidol (Isovue Multipack-370 (76%)) 83 ml IVPUSH ONETIME ONE Stop: 03/12/19 18:53 Last Admin: 03/12/19 18:53 Dose: 83 ml Morphine Sulfate (Morphine) 2 mg IVPUSH ONETIME ONE Stop: 03/12/19 16:49 Last Admin: 03/12/19 17:03 Dose: 2 mg Morphine Sulfate (Morphine) 2 mg IVPUSH ONETIME ONE Stop: 03/12/19 18:08 Last Admin: 03/12/19 18:09 Dose: 2 mg Morphine Sulfate (Morphine) Confirm Administered Dose 2 mg .ROUTE .STK-MED ONE Stop: 03/12/19 18:07 Last Admin: 03/12/19 18:19 Dose: Not Given Ondansetron HCl (Zofran) 4 mg IVPUSH ONETIME ONE Stop: 03/12/19 16:49 Last Admin: 03/12/19 17:03 Dose: 4 mg - Exam General: Alert, Oriented Lungs: Normal Respiratory Effort Cardiovascular: Regular Rate GI/Abdominal Exam: Soft, Non-Tender, No Distention, No Mass Consult PN Assessment/Plan Procedures: Procedures ANTINUCLEAR ANTIBODIES (04/27/16) ASSAY OF CK (CPK) (04/27/16) ASSAY THYROID STIM HORMONE (04/27/16) COMP SCREEN MAMMOGRAM ADD-ON (08/25/15) COMPLETE CBC W/AUTO DIFF WBC (04/27/16) COMPREHEN METABOLIC PANEL (04/27/16) MRI LUMBAR SPINE W/O DYE (03/08/16) RBC SED RATE AUTOMATED (04/27/16) REDUCTION OF LARGE BREAST (09/01/16) RHEUMATOID FACTOR TEST QUAL (04/27/16) ROUTINE VENIPUNCTURE (04/27/16) URINALYSIS AUTO W/SCOPE (04/06/14) URINE BACTERIA CULTURE (04/06/14) X-RAY EXAM HIP UNI 2-3 VIEWS (03/02/16) X-RAY EXAM L-S SPINE 2/3 VWS (03/02/16) X-RAY EXAM OF ANKLE (03/02/16) (1) Bowel obstruction SNOMED Code(s): 69484489 Code(s): K56.609 - UNSP INTESTNL OBST, UNSP TO PARTIAL VERSUS COMPLETE OBST Current Visit: Yes Qualifiers: Intestinal obstruction type: unspecified Intestinal obstruction extent: complete Qualified Code(s): K56.601 - Complete intestinal obstruction, unspecified as to cause Problem List Initiated/Reviewed/Updated: Yes Plan: Ok to advance diet to full liquids. Patient has had no nausea or vomiting with diet advancement. Can consider adding medications (dulcolax, senna, miralax, suppositories) to help with BM. Awaiting BM before advancing diet further.
[2019-03-14] MEDS ORDERED: Acetaminophen 325 MG Tab PO PRN (07:55)
--- NOTE | 2019-03-14 08:58 | PCM.PN ---
- General Info Date of Service: 03/14/19 Admission Dx/Problem (Free Text): Admission Diagnosis/Problem Admission Diagnosis/Problem Small bowel obstruction Subjective Update: Doing well this morning, mild tenderness to lower abdomen. Passing minimal flatus, no BM yet. No chest pain or SOB Functional Status: Reports: Pain Controlled, Tolerating Diet, Ambulating, Urinating - Review of Systems General: Reports: No Symptoms. Denies: Fever, Weakness, Fatigue, Malaise Cardiovascular: Reports: No Symptoms. Denies: Chest Pain Gastrointestinal: Reports: Abdominal Pain, Flatus. Denies: Nausea, Vomiting Genitourinary: Reports: No Symptoms. Denies: Dysuria, Frequency, Burning Musculoskeletal: Reports: No Symptoms Skin: Reports: No Symptoms Neurological: Reports: No Symptoms Psychiatric: Reports: No Symptoms - Patient Data Vitals - Most Recent: Last Vital Signs Temp 97.7 F 03/14/19 07:20 Pulse 70 03/14/19 07:20 Resp 16 03/14/19 07:20 BP 131/75 03/14/19 07:20 Pulse Ox 94 L 03/14/19 07:20 Weight - Most Recent: 69.6 kg I&O - Last 24 Hours: Intake & Output 03/13/19 03/14/19 03/14/19 22:59 06:59 14:59 Intake Total 1520 2100 Output Total 350 1350 Balance 1170 750 Lab Results Last 24 Hours: Laboratory Results - last 24 hr 03/14/19 03/14/19 Range/Units 05:08 05:08 WBC 3.55 L (4.0-11.0) K/uL RBC 3.40 L (4.30-5.90) M/uL Hgb 10.4 L (12.0-16.0) g/dL Hct 31.5 L (36.0-46.0) % MCV 92.6 (80.0-98.0) fL MCH 30.6 (27.0-32.0) pg MCHC 33.0 (31.0-37.0) g/dL RDW Std Deviation 44.2 (28.0-62.0) fl RDW Coeff of Raghav 13 (11.0-15.0) % Plt Count 159 (150-400) K/uL MPV 10.10 (7.40-12.00) fL Neut % (Auto) 46.4 L (48.0-80.0) % Lymph % (Auto) 41.1 H (16.0-40.0) % [place] % (Auto) 8.5 (0.0-15.0) % Eos % (Auto) 3.4 (0.0-7.0) % Baso % (Auto) 0.6 (0.0-1.5) % Neut # (Auto) 1.7 (1.4-5.7) K/uL Lymph # (Auto) 1.5 (0.6-2.4) K/uL [place] # (Auto) 0.3 (0.0-0.8) K/uL Eos # (Auto) 0.1 (0.0-0.7) K/uL Baso # (Auto) 0.0 (0.0-0.1) K/uL Nucleated RBC % 0.0 /100WBC Nucleated RBCs # 0 K/uL Sodium 144 (136-145) mmol/L Potassium 3.6 (3.5-5.1) mmol/L Chloride 111 H (98-107) mmol/L Carbon Dioxide 24.8 (21.0-32.0) mmol/L BUN 8 (7.0-18.0) mg/dL Creatinine 0.7 (0.6-1.0) mg/dL Est Cr Clr Drug Dosing 83.63 mL/min Estimated GFR (MDRD) > 60.0 ml/min Glucose 87 (74-106) mg/dL Calcium 7.8 L (8.5-10.1) mg/dL Med Orders - Current: Current Medications Acetaminophen (Tylenol) 650 mg PO Q6H PRN PRN Reason: Pain Sodium Chloride (Normal Saline) 1,000 mls @ 125 mls/hr IV ASDIRECTED NICANOR Last Admin: 03/14/19 05:26 Dose: 125 mls/hr Morphine Sulfate (Morphine) 2 mg IVPUSH Q2H PRN PRN Reason: Pain Ondansetron HCl (Zofran) 4 mg IVPUSH Q3H PRN PRN Reason: Nausea Last Admin: 03/12/19 21:48 Dose: 4 mg Sodium Chloride (Saline Flush) 10 ml FLUSH ASDIRECTED PRN PRN Reason: Keep Vein Open Sodium Chloride (Saline Flush) 2.5 ml FLUSH ASDIRECTED PRN PRN Reason: Keep Vein Open Discontinued Medications Famotidine (Pepcid) 20 mg IVPUSH ONETIME ONE Stop: 03/12/19 17:34 Last Admin: 03/12/19 17:39 Dose: 20 mg Sodium Chloride (Normal Saline) 1,000 mls @ 999 mls/hr IV .Bolus ONE Stop: 03/12/19 17:48 Last Admin: 03/12/19 17:03 Dose: 999 mls/hr Sodium Chloride (Normal Saline) 1,000 mls @ 999 mls/hr IV .Bolus ONE Stop: 03/12/19 19:09 Last Admin: 03/12/19 18:34 Dose: 999 mls/hr Iopamidol (Isovue Multipack-370 (76%)) 83 ml IVPUSH ONETIME ONE Stop: 03/12/19 18:53 Last Admin: 03/12/19 18:53 Dose: 83 ml Morphine Sulfate (Morphine) 2 mg IVPUSH ONETIME ONE Stop: 03/12/19 16:49 Last Admin: 03/12/19 17:03 Dose: 2 mg Morphine Sulfate (Morphine) 2 mg IVPUSH ONETIME ONE Stop: 03/12/19 18:08 Last Admin: 03/12/19 18:09 Dose: 2 mg Morphine Sulfate (Morphine) Confirm Administered Dose 2 mg .ROUTE .STK-MED ONE Stop: 03/12/19 18:07 Last Admin: 03/12/19 18:19 Dose: Not Given Ondansetron HCl (Zofran) 4 mg IVPUSH ONETIME ONE Stop: 03/12/19 16:49 Last Admin: 03/12/19 17:03 Dose: 4 mg - Exam General: Alert, Oriented, Cooperative, No Acute Distress Lungs: Clear to Auscultation, Normal Respiratory Effort Cardiovascular: Regular Rate, Regular Rhythm GI/Abdominal Exam: Normal Bowel Sounds, Soft, Tender (lower abdomen). No: Distended Extremities: Normal Inspection, Normal Range of Motion, Non-Tender, No Pedal Edema Neurological: No New Focal Deficit Psy/Mental Status: Alert, Normal Affect, Normal Mood - Problem List & Annotations (1) Bowel obstruction SNOMED Code(s): 22435447 Code(s): K56.609 - UNSP INTESTNL OBST, UNSP TO PARTIAL VERSUS COMPLETE OBST Status: Acute Current Visit: Yes Qualifiers: Intestinal obstruction type: unspecified Intestinal obstruction extent: complete Qualified Code(s): K56.601 - Complete intestinal obstruction, unspecified as to cause - Problem List Review Problem List Initiated/Reviewed/Updated: Yes - My Orders Last 24 Hours: My Active Orders 03/13/19 09:16 CULTURE STOOL + CAMPY+SHIGATOX [RM] Routine 03/14/19 Breakfast Full Liquid Diet [DIET] - Plan Plan:: 53 yo female admitted for small bowel obstruction. 1. SBO: After first rounds today, she had bowel movement. Will send for culture and hemoccult per Dr Dennis recommendations. Advance to FL and potentiall to soft GI diet today. Dr. Dennis has been consulted, see consultation. We will continue IV fluids. VTE prophylaxis: SCDs ambulation Dispo; possibly later today.
[2019-03-14] MEDS ORDERED: Bisacodyl 10 MG Supp RECTAL ONE (11:03)
[2019-03-14 12:37] VITALS: BP 134/84
--- NOTE | 2019-03-14 14:17 | PCM.DCSUM1 ---
Discharge Summary - Hospital Course Brief History: 53 yo male who presented with two day history of abdominal pain and diarrhea. Her last bowel movement was 3:00 today. She then developed nausea and vomiting. CT scan of the abdomen was suggestive of small bowel obstruction. She has a history of , hysterectomy, oophorectomy, and appendectomy. Diagnosis: Stroke: No - Discharge Data Discharge Date: 03/14/19 Discharge Disposition: Home, Self-Care 01 Condition: Good - Discharge Diagnosis/Problem(s) (1) Bowel obstruction SNOMED Code(s): 15073984 ICD Code: K56.609 - UNSP INTESTNL OBST, UNSP TO PARTIAL VERSUS COMPLETE OBST Status: Acute Current Visit: Yes Qualifiers: Intestinal obstruction type: unspecified Intestinal obstruction extent: complete Qualified Code(s): K56.601 - Complete intestinal obstruction, unspecified as to cause - Patient Instructions Diet: Full Liquid Diet (FL over the weekend, slowly advance to low fiber soft diet then regular over next week) Activity: As Tolerated Showering/Bathing: May Shower Notify Provider of: Fever, Increased Pain, Swelling and Redness, Drainage, Nausea and/or Vomiting - Discharge Plan *PRESCRIPTION DRUG MONITORING PROGRAM REVIEWED*: No *COPY OF PRESCRIPTION DRUG MONITORING REPORT IN PATIENT ERIC: No Prescriptions/Med Rec: Ondansetron [Zofran ODT] 4 mg PO Q6H PRN #20 tab.dis PRN Reason: Nausea Home Medications: Home Meds Biest/Progesterone Transdermal Cr 1 applic TOP DAILY 08/30/16 [History] Progesterone,Micronized [Progesterone] 100 mg PO BEDTIME 08/30/16 [History] Levothyroxine 50 mcg PO DAILY 03/12/19 [History] Ondansetron [Zofran ODT] 4 mg PO Q6H PRN #20 tab.dis 03/12/19 [Rx] Tolterodine [Detrol] 4 mg PO DAILY 03/12/19 [History] Oxygen Therapy Mode: Room Air Patient Handouts: Ondansetron oral dissolving tablet Referrals: Rosanne Dennis MD [Physician] - 03/24/19 9:00 am - Discharge Summary/Plan Comment DC Time >30 min.: No Discharge Summary/Plan Comment: Admitting Diagnoses: SBO Discharge Diagnoses: SBO Stephanie was admitted with SBO. She was placed on bowel rest. Dr Dennis consulted and recommended conservative therapy with stool cultures when there was a stool. She passed gas 03/13 and then was started on CL diet, which she tolerated well. She was then transitioned to FL diet today. She had BM this morning, given a dulcolax afterwards due to some bloating feelings. She continued to have small dry BM. She is slightly sore but is very eager to go home. She is tolerating diet well without overt abdominal pain and no nausea. She is to remain on FL diet this weekend and slowly advance to low fiber diet. She has follow up with PCP and Dr Dennis. Stool cultures negative and negative for blood. She is to return to ED or clinic if concerns should arise. - General Info Date of Service: 03/14/19 Admission Dx/Problem (Free Text: Admission Diagnosis/Problem Admission Diagnosis/Problem Small bowel obstruction Subjective Update: Feeling good this afternoon after having BM and continuing to pass flatus. Eager to go home. Functional Status: Reports: Pain Controlled, Tolerating Diet, Ambulating, Urinating - Review of Systems General: Reports: No Symptoms. Denies: Weakness Pulmonary: Reports: No Symptoms. Denies: Shortness of Breath Cardiovascular: Reports: No Symptoms. Denies: Chest Pain Gastrointestinal: Reports: Abdominal Pain (soreness only), Flatus. Denies: Constipation, Nausea, Vomiting Musculoskeletal: Reports: No Symptoms Skin: Reports: No Symptoms Neurological: Reports: No Symptoms Psychiatric: Reports: No Symptoms - Patient Data Vitals - Most Recent: Last Vital Signs Temp 98.2 F 03/14/19 12:00 Pulse 62 03/14/19 12:00 Resp 16 03/14/19 12:00 BP 134/84 03/14/19 12:00 Pulse Ox 99 03/14/19 12:00 Weight - Most Recent: 69.6 kg I&O - Last 24 hours: Intake & Output 03/13/19 03/14/19 03/14/19 22:59 06:59 14:59 Intake Total 1520 2100 Output Total 350 1350 Balance 1170 750 Lab Results - Last 24 hrs: Laboratory Results - last 24 hr 03/14/19 03/14/19 Range/Units 05:08 05:08 WBC 3.55 L (4.0-11.0) K/uL RBC 3.40 L (4.30-5.90) M/uL Hgb 10.4 L (12.0-16.0) g/dL Hct 31.5 L (36.0-46.0) % MCV 92.6 (80.0-98.0) fL MCH 30.6 (27.0-32.0) pg MCHC 33.0 (31.0-37.0) g/dL RDW Std Deviation 44.2 (28.0-62.0) fl RDW Coeff of Raghav 13 (11.0-15.0) % Plt Count 159 (150-400) K/uL MPV 10.10 (7.40-12.00) fL Neut % (Auto) 46.4 L (48.0-80.0) % Lymph % (Auto) 41.1 H (16.0-40.0) % [place] % (Auto) 8.5 (0.0-15.0) % Eos % (Auto) 3.4 (0.0-7.0) % Baso % (Auto) 0.6 (0.0-1.5) % Neut # (Auto) 1.7 (1.4-5.7) K/uL Lymph # (Auto) 1.5 (0.6-2.4) K/uL [place] # (Auto) 0.3 (0.0-0.8) K/uL Eos # (Auto) 0.1 (0.0-0.7) K/uL Baso # (Auto) 0.0 (0.0-0.1) K/uL Nucleated RBC % 0.0 /100WBC Nucleated RBCs # 0 K/uL Sodium 144 (136-145) mmol/L Potassium 3.6 (3.5-5.1) mmol/L Chloride 111 H (98-107) mmol/L Carbon Dioxide 24.8 (21.0-32.0) mmol/L BUN 8 (7.0-18.0) mg/dL Creatinine 0.7 (0.6-1.0) mg/dL Est Cr Clr Drug Dosing 83.63 mL/min Estimated GFR (MDRD) > 60.0 ml/min Glucose 87 (74-106) mg/dL Calcium 7.8 L (8.5-10.1) mg/dL SHIRIN Results - Last 24 hrs: Microbiology 03/14/19 09:18 Stool Occult Blood (SHIRIN) - Final Stool / Feces NEGATIVE OCCULT BLOOD REFERENCE RANGE: NEGATIVE 03/13/19 09:00 Campylobacter Antigen Assay - Final Stool / Feces NEGATIVE CAMPYLOBACTER AG REFERENCE RANGE: NEGATIVE Med Orders - Current: Current Medications Acetaminophen (Tylenol) 650 mg PO Q6H PRN PRN Reason: Pain Sodium Chloride (Normal Saline) 1,000 mls @ 125 mls/hr IV ASDIRECTED NICANOR Last Admin: 03/14/19 05:26 Dose: 125 mls/hr Morphine Sulfate (Morphine) 2 mg IVPUSH Q2H PRN PRN Reason: Pain Ondansetron HCl (Zofran) 4 mg IVPUSH Q3H PRN PRN Reason: Nausea Last Admin: 03/12/19 21:48 Dose: 4 mg Sodium Chloride (Saline Flush) 10 ml FLUSH ASDIRECTED PRN PRN Reason: Keep Vein Open Sodium Chloride (Saline Flush) 2.5 ml FLUSH ASDIRECTED PRN PRN Reason: Keep Vein Open Discontinued Medications Bisacodyl (Dulcolax) 10 mg RECTAL ONETIME ONE Stop: 03/14/19 11:04 Last Admin: 03/14/19 11:11 Dose: 10 mg Famotidine (Pepcid) 20 mg IVPUSH ONETIME ONE Stop: 03/12/19 17:34 Last Admin: 03/12/19 17:39 Dose: 20 mg Sodium Chloride (Normal Saline) 1,000 mls @ 999 mls/hr IV .Bolus ONE Stop: 03/12/19 17:48 Last Admin: 03/12/19 17:03 Dose: 999 mls/hr Sodium Chloride (Normal Saline) 1,000 mls @ 999 mls/hr IV .Bolus ONE Stop: 03/12/19 19:09 Last Admin: 03/12/19 18:34 Dose: 999 mls/hr Iopamidol (Isovue Multipack-370 (76%)) 83 ml IVPUSH ONETIME ONE Stop: 03/12/19 18:53 Last Admin: 03/12/19 18:53 Dose: 83 ml Morphine Sulfate (Morphine) 2 mg IVPUSH ONETIME ONE Stop: 03/12/19 16:49 Last Admin: 03/12/19 17:03 Dose: 2 mg Morphine Sulfate (Morphine) 2 mg IVPUSH ONETIME ONE Stop: 03/12/19 18:08 Last Admin: 03/12/19 18:09 Dose: 2 mg Morphine Sulfate (Morphine) Confirm Administered Dose 2 mg .ROUTE .STK-MED ONE Stop: 03/12/19 18:07 Last Admin: 03/12/19 18:19 Dose: Not Given Ondansetron HCl (Zofran) 4 mg IVPUSH ONETIME ONE Stop: 03/12/19 16:49 Last Admin: 03/12/19 17:03 Dose: 4 mg - Exam General: Reports: Alert, Oriented, Cooperative, No Acute Distress Lungs: Reports: Clear to Auscultation, Normal Respiratory Effort Cardiovascular: Reports: Regular Rate, Regular Rhythm GI/Abdominal Exam: Normal Bowel Sounds, Soft, Tender Back Exam: Reports: Normal Inspection, Full Range of Motion Extremities: Normal Inspection, Normal Range of Motion, Non-Tender Neurological: Reports: No New Focal Deficit Psy/Mental Status: Reports: Alert, Normal Affect, Normal Mood
== END 2019-03-14 15:20 | disposition home or self-care (01) | DRG 247 ==
LOC: MW.ED 16:28 → MW.MS 19:36
PROVIDERS: ADMIT Internal Medicine; ATTEND Internal Medicine
DX: K56.601 Complete intestinal obstruction, unspecified as to cause (principal); Z90.89 Acquired absence of other organs; Z90.49 Acquired absence of other specified parts of digestive tract; Z79.82 Long term (current) use of aspirin; Z88.0 Allergy status to penicillin; Z79.899 Other long term (current) drug therapy
CPT/HCPCS: 36415; 74177; 74177-26; 80048; 80053; 81001; 82272; 83605; 83690; 85025; 87046; 87899; 96361; 96374; 96375; 96376; 99284; 99285-25; A9270-GY; J2270; J2405; J3490; J7040; Q9967

== ENCOUNTER 2019-07-17 09:18 | Day surgery (SDC) | payer BC ==
[~2019-07-17 09:18] MED LIST: Lactated Ringers 1,000 ML IV SCH; Sodium Chloride 0.9% 10 ML SDV IV PRN; Sodium Chloride 0.9% 10 ML Syringe FLUSH PRN; Sodium Chloride 0.9% 2.5 ML Syringe FLUSH PRN
[2019-07-17] MEDS ORDERED: Propofol 200 MG/20 ML SDV ONE (10:42)
--- NOTE | 2019-07-17 11:13 | PCM.PREANE ---
Preanesthetic Assessment - Anesthesia/Transfusion/Family Hx Anesthesia History: Prior Anesthesia Reaction (nausea and vomining with c sections x 2, prolongued sedation after GA) Other Type of Anesthesia Reaction Comment: hard to wake after breast reduction, N&V in the past Transfusion History: No Prior Transfusion(s) - Review of Systems General: No Symptoms Pulmonary: No Symptoms Cardiovascular: No Symptoms Neurological: No Symptoms Other: Reports: None - Physical Assessment Vital Signs: Last Vital Signs Temp 97.2 F 07/17/19 09:34 Pulse 92 07/17/19 09:34 Resp 14 07/17/19 09:34 BP 103/66 07/17/19 09:34 Pulse Ox 97 07/17/19 09:34 Height: 5 ft 5 in Weight: 66.224 kg ASA Class: 2 Mental Status: Alert & Oriented x3 Airway Class: Mallampati = 2 Dentition: Reports: Normal Dentition, Bridge ROM/Head Extension: Full Lungs: Clear to Auscultation, Normal Respiratory Effort Cardiovascular: Regular Rate, Regular Rhythm - Allergies Allergies/Adverse Reactions: Allergies Allergy/AdvReac Type Severity Reaction Status Date / Time aspirin Allergy Nose Bleeds Verified 07/17/19 09:40 Penicillins Allergy Hives Verified 07/17/19 09:40 - Blood Blood Available: No - Anesthesia Plan Pre-Op Medication Ordered: None - Acknowledgements Anesthesia Type Planned: General Anesthesia Pt an Appropriate Candidate for the Planned Anesthesia: Yes Alternatives and Risks of Anesthesia Discussed w Pt/Guardian: Yes Pt/Guardian Understands and Agrees with Anesthesia Plan: Yes Additional Comments: PMH: migraines PLAN: tiva (avoid opioids and benzos if possible. 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: Musculoskeletal History: Reports: Other (See Below) Other Musculoskeletal History: occasional hip and back pain, Neurological History: Reports: None Psychiatric History: Reports: None Endocrine/Metabolic History: Reports: Hypothyroidism Hematologic History: Reports: None Immunologic History: Reports: None Oncologic (Cancer) History: Reports: None Dermatologic History: Reports: None - Infectious Disease History Infectious Disease History: Reports: Chicken Pox, Mumps - Past Surgical History Head Surgeries/Procedures: Reports: None HEENT Surgical History: Reports: None Cardiovascular Surgical History: Reports: None Respiratory Surgical History: Reports: None GI Surgical History: Reports: Appendectomy Female Surgical History: Reports: Breast Reduction, Section, Hysterectomy, Oophorectomy Endocrine Surgical History: Reports: None Neurological Surgical History: Reports: None Musculoskeletal Surgical History: Reports: None Oncologic Surgical History: Reports: None Dermatological Surgical History: Reports: None - SUBSTANCE USE Smoking Status *Q: Never Smoker Recreational Drug Use History: No - HOME MEDS Home Medications: Home Meds Biest/Progesterone Transdermal Cr 1 applic TOP DAILY 08/30/16 [History] Progesterone, Micronized [Progesterone] 200 mg PO BEDTIME 08/30/16 [History] Levothyroxine 50 mcg PO DAILY 03/12/19 [History] Tolterodine [Detrol] 4 mg PO DAILY 03/12/19 [History] Calcium Carbonate [Tums] 1 tab.chew CHEW ASDIRECTED PRN 07/11/19 [History] Cholecalciferol (Vitamin D3) [Vitamin D3] 1,000 units PO DAILY 07/11/19 [History ] Fexofenadine [Pari] 180 mg PO DAILY 07/11/19 [History] Vitamin B Complex 1 tab PO DAILY 07/11/19 [History] - CURRENT (IN HOUSE) MEDS Current Meds: Current Medications Lactated Ringer's (Ringers, Lactated) 1,000 mls @ 125 mls/hr IV ASDIRECTED NICANOR Last Admin: 07/17/19 09:39 Dose: 125 mls/hr Sodium Chloride (Saline Flush) 10 ml FLUSH ASDIRECTED PRN PRN Reason: Keep Vein Open Sodium Chloride (Saline Flush) 2.5 ml FLUSH ASDIRECTED PRN PRN Reason: Keep Vein Open Sodium Chloride (Saline Flush) 10 ml FLUSH ASDIRECTED PRN PRN Reason: Keep Vein Open Sodium Chloride (Saline Flush) 2.5 ml FLUSH ASDIRECTED PRN PRN Reason: Keep Vein Open Sodium Chloride (Normal Saline) 10 ml IV ASDIRECTED PRN PRN Reason: IV Use Discontinued Medications Lidocaine HCl (Xylocaine-Mpf 1%) Confirm Administered Dose 5 ml .ROUTE .STK-MED ONE Stop: 07/17/19 10:43 Propofol (Diprivan 20 Ml) Confirm Administered Dose 400 mg .ROUTE .STK-MED ONE Stop: 07/17/19 10:43
--- NOTE | 2019-07-17 12:02 | PCM.OPNOTE ---
- General Post-Op/Procedure Note Date of Surgery/Procedure: 07/17/19 Operative Procedure(s): Diagnostic colonoscopy Findings: Normal colonoscopy Pre Op Diagnosis: History of partial small bowel obstruction Post-Op Diagnosis: same Anesthesia Technique: MAC Primary Surgeon: Rosanne Dennis Condition: Good
--- NOTE | 2019-07-17 12:14 | PCM.POSTAN ---
POST ANESTHESIA ASSESSMENT - MENTAL STATUS Mental Status: Alert, Oriented - VITAL SIGNS Vital Signs: Last Vital Signs Temp 36.3 C 07/17/19 11:59 Pulse 91 07/17/19 12:09 Resp 10 L 07/17/19 12:09 BP 104/68 07/17/19 12:09 Pulse Ox 97 07/17/19 12:09 - RESPIRATORY Respiratory Status: Respiratory Rate WNL, Airway Patent, O2 Saturation Stable - CARDIOVASCULAR CV Status: Pulse Rate WNL, Blood Pressure Stable - GASTROINTESTINAL GI Status: No Symptoms - POST OP HYDRATION Hydration Status: Adequate & Stable
--- NOTE | 2019-07-17 12:29 | PCM48HPAN ---
Post Anesthesia Note - EVALUATION WITHIN 48HRS OF ANESTHETIC Vital Signs in Normal Range: Yes Patient Participated in Evaluation: Yes Respiratory Function Stable: Yes Airway Patent: Yes Cardiovascular Function Stable: Yes Hydration Status Stable: Yes Pain Control Satisfactory: Yes Nausea and Vomiting Control Satisfactory: Yes Mental Status Recovered: Yes Vital Signs: Last Vital Signs Temp 97.3 F 07/17/19 11:59 Pulse 87 07/17/19 12:14 Resp 16 07/17/19 12:14 BP 106/61 07/17/19 12:14 Pulse Ox 97 07/17/19 12:14
--- NOTE | 2019-07-17 12:52 | OR ---
SURGEON: ROSANNE DENNIS MD DATE OF PROCEDURE: 07/17/2019 PREOPERATIVE DIAGNOSIS: History of partial small-bowel obstruction. POSTOPERATIVE DIAGNOSIS: Normal colonoscopy. PROCEDURE PERFORMED: Diagnostic colonoscopy. PRIMARY SURGEON: Rosanne Dennis MD. ANESTHESIA: MAC. INSTRUMENT USED: Olympus colonoscope. EXTENT OF EXAM: To the cecum. PREPARATION: Good. LIMITATIONS: None. INDICATION FOR EXAMINATION: The patient is a 53-year-old female who was admitted several months ago with a partial small-bowel obstruction. This resolved with conservative measures. A followup small-bowel follow-through was read as normal. The patient has never had a colonoscopy. The decision was made to proceed with diagnostic colonoscopy. I explained the procedure, expected perioperative course, and risks including bleeding, infection, or damage to surrounding structures including perforation. She verbalized understanding and wishes to proceed. PROCEDURE IN DETAIL: The patient was brought to the endoscopy suite and placed in a left lateral decubitus position. A time-out was completed verifying the patient's name, age, date of , allergies, and procedure to be performed. Monitored anesthesia care was induced and continuous oxygen was provided via nasal cannula throughout the procedure. After adequate sedation was achieved, a digital rectal exam was performed. This exam was within normal limits. A well-lubricated colonoscope was inserted in the rectum and advanced under direct visualization to the level of the cecum. The cecum was identified by both visual and anatomic landmarks. A photograph was taken of the cecal cap as well as with the scope retroflexed within the cecum. The scope was then fully withdrawn while examining the color, texture, anatomy, and integrity of the mucosa from the cecum to the anal canal. The findings were consistent with normal colonic mucosa. The scope was then brought into the rectum and retroflexed to allow visualization of the anal canal opening. This appeared normal and a photograph was taken. The scope was then straightened out and fully withdrawn. The cecum to anus time was 6 minutes. The patient tolerated the procedure well and was transferred to the PACU in stable condition. ENDOSCOPIC DIAGNOSIS: Normal colonoscopy. RECOMMENDATIONS: The patient's partial small-bowel obstruction was likely due to either abdominal adhesions or transient infectious process. At this time, the patient is doing well with no other symptomatic complaints. Will need a repeat colonoscopy in 10 years for screening purposes. Can follow up as needed should any issues arise in the future. ZOE / KELSEY /[id number]
[2019-07-17 12:53] VITALS: BP 119/67; PULSE 85
== END 2019-07-17 13:03 | disposition home or self-care (01) ==
LOC: MW.SDS 09:18
PROVIDERS: ATTEND Surgery
DX: Z12.11 Encounter for screening for malignant neoplasm of colon (principal); K21.9 Gastro-esophageal reflux disease without esophagitis; E03.9 Hypothyroidism, unspecified; G43.909 Migraine, unspecified, not intractable, without status migrainosus; Z87.19 Personal history of other diseases of the digestive system; Z88.0 Allergy status to penicillin; Z88.6 Allergy status to analgesic agent; Z79.899 Other long term (current) drug therapy
CPT/HCPCS: 45378; J2001; J2704; J7120; 00811